=== PATIENT | male | born 1970 | race Two or more races ===

== ENCOUNTER 2023-03-29 03:16 | Emergency (ER) | payer MEDICAID, OTHER ==
[~2023-03-29] VITALS: Ht 182.9 cm; Wt 68.2 kg
[2023-03-29 03:22] VITALS: BP 138/91
[2023-03-29] MEDS ORDERED: KETOROLAC TROMETH 60MG/2ML VIAL IM ONE (06:45)
[2023-03-29 07:24] LABS: Basophils # (auto) 0 10 ^3/uL (0-0.2); Basophils % (auto) 0.7 % (0.0-2.0); Eosinophils # (auto) 0.1 10 ^3/uL (0-0.8); Eosinophils % (auto) 1.9 % (0.0-7.0); Lymphocytes # (auto) 1.4 10 ^3/uL (0.4-5.4); Mean Corpuscular Hgb Conc. 34.7 g/dL (32.0-36.0); Monocytes # (auto) 0.6 10 ^3/uL (0-1.3); Neutrophils # (auto) 3.5 10 ^3/uL (1.6-8.6); Nucleated Red Blood Cells % 0.1 %; White Blood Cell 5.5 10^3/uL (4.4-10.8)
[2023-03-29 07:26] LABS: Hematocrit 37.6 % (41.0-53.0); Lymphocytes % (auto) 24.7 % (10.0-50.0); Mean Corpuscular Hemoglobin 35.1 pg (28.0-32.0); Mean Corpuscular Volume 101.3 fL (80.0-100.0); Neutrophils % (auto) 62.7 % (37.0-80.0); Red Blood Cells 3.71 10^6/uL (4.5-5.90); Red Cell Distribution Width 13.2 % (11.8-14.3)
[2023-03-29 07:37] LABS: Albumin 3.6 g/dL (3.4-5.0); Calcium 8.3 mg/dL (8.5-10.1); Potassium 3.7 mmol/L (3.5-5.1)
[2023-03-29 07:41] LABS: Bilirubin, Total 0.4 mg/dL (0.2-1.0); Total Protein 7.8 g/dL (6.4-8.2)
[2023-03-29 07:46] LABS: BUN/Creatinine Ratio 18.6 (10.0-20.0)
[2023-03-29] MEDS ORDERED: HYDR-4902 PO (08:28)
[2023-03-29] MEDS ORDERED: IBUP-1455 PO (08:28)
[2023-03-29] MEDS ORDERED: CEPH250C PO (08:28)
== END 2023-03-29 08:39 | disposition home or self-care (01) ==
LOC: ER 03:16
DX: L03.113 Cellulitis of right upper limb (principal); L02.413 Cutaneous abscess of right upper limb
CPT/HCPCS: 36415; 80053; 83605; 85025; 85652; 96372; 99283; J1885